=== PATIENT | female | born 1975 | race Caucasian/White ===

== ENCOUNTER 2023-07-01 16:00 | Inpatient (IN) | payer BC ==
[~2023-07-01] VITALS: Ht 165.1 cm; Wt 135.9 kg
[2023-07-01 16:28] LABS: BASO % 0.2 % (0.0-2.0); EOS % 0.1 % (0.0-4.0); GRAN # 12.8 K/mm3 (1.4-6.5); GRAN % 84.6 % (42.2-75.2); HEMATOCRIT 45.9 % (37.0-47.0); HEMOGLOBIN 15.1 g/dl (12.5-16.0); LYMPH # 1.3 K/mm3 (1.2-3.4); LYMPH % 8.8 % (20.0-51.0); MEAN CELL VOLUME 92 fl (80.0-100.0); MEAN CORPUSCULAR HEMOGLOBIN 30 pg (27-31); MEAN CORPUSCULAR HGB CONC 33 g/dl (33.0-37.0); MEAN PLATELET VOLUME 10.6 fl (7.4-10.4); MONO # 0.9 K/mm3 (0.1-0.6); MONO % 5.8 % (1.7-9.3); PLATELET COUNT 364 K/mm3 (130-400); RED BLOOD COUNT 5.01 M/mm3 (4.10-5.30); REDCELL DISTRIBUTION WIDTH-CV 12.7 % (11.5-14.5)
[2023-07-01 17:02] LABS: BILIRUBIN,TOTAL 4.9 mg/dL (0.2-1.2); CALCIUM 9.3 mg/dL (8.4-10.2); CREATININE, serum 0.85 mg/dL (0.57-1.11); POTASSIUM 3.9 mmol/L (3.5-4.5); TOTAL PROTEIN 7.9 gm/dL (6.2-8.1)
[2023-07-01 18:40] LABS: COLLECTION METHOD CLEAN CATCH
[2023-07-01] MEDS ORDERED: PRINIVIL20 MG PO (18:43)
[2023-07-01] MEDS ORDERED: TOPAMAX50 MG PO (18:43)
[2023-07-01] MEDS ORDERED: SEMGLEE (Y100 UNIT/2 SQ (18:46)
[2023-07-01 19:11] LABS: URINE COLOR Yellow (YELLOW); URINE GLUCOSE Negative (NEGATIVE); URINE KETONE 2+ (NEGATIVE); URINE PROTEIN(semi-quant) TRACE (NEGATIVE)
[2023-07-01 19:12] LABS: URINE APPEARANCE Clear (CLEAR/HAZY); URINE BACTERIA Occasional /hpf (NONE SEEN); URINE BLOOD 1+ (NEGATIVE); URINE NITRATE Negative (NEGATIVE); URINE UROBILINOGEN 0.2 E.U/dL (0.2-1.0)
[2023-07-01 19:13] LABS: MUCOUS Present (NOT PRESENT); SQUAMOUS EPITHELIAL 0-2 /hpf (0-10); URINE RBC 0-2 /hpf (0-2)
[2023-07-01] MEDS ORDERED: ADVIL200 MG PO (19:39)
[2023-07-01] MEDS ORDERED: ZEGERID 20 MG-11 CAP PO (19:39)
[2023-07-01 19:44] VITALS: BP 132/84; PULSE 77; TEMP 98.3
[2023-07-01 19:50] LABS: INR 1.1 (0.8-3.0); PROTHROMBIN TIME 11.9 SECONDS (9.7-12.8)
[2023-07-01 19:59] LABS: PHOSPHOROUS 3.1 mg/dL (2.3-4.7)
[2023-07-01 20:01] VITALS: BP_SYST 132
--- NOTE | 2023-07-01 21:11 | NUR ---
Patient arrived to medical unit from ER at approximately 1935. Alert and oriented, and able to make needs known. Reports level 5 pain to abdomen. Given PRN Morphine as requested. Started on IV fluids per orders. Spoke with Dr. Yañez who stated that ice chips were ok to have. Patient voices no further questions, needs, or concerns at this time. In bed with call light within reach.
[2023-07-01 23:28] VITALS: BP 117/73; PULSE 73; TEMP 98.2
[2023-07-02] VITALS (12 sets, daily range): BP systolic 117–148; BP diastolic 63–85; PULSE 76–93; TEMP 97.5–100
--- NOTE | 2023-07-02 05:30 | NUR ---
Patient continues on IV fluids per orders. Tolerating ice chips. Denies nausea. Has been having pain to abdomen, given PRN Morphine: see MAR for times. Did request PRN Toradol, stating that she received it in ER, and it seemed to help. Call placed to Dr. Yañez, and new order for one time dose of Toradol received and given per orders. Voices no further questions, needs, or concerns at this time. In bed with call light within reach.
[2023-07-02] MEDS ORDERED: [UNRECOGNIZED DRUG - OTHER] (07:13)
--- NOTE | 2023-07-02 07:20 | NUR ---
RECIEVED REPORT FROM CONSTANCE RUDOLPH.
--- NOTE | 2023-07-02 08:28 | NUR ---
PT ALERT AND ORIENTED. WOULD LIKE PAIN MEDS BEFORE WE ATTMEPT TO DRAW BLOOD. LAB WAS UNSUCCESSFUL AFTER TWO ATTEMPTS. VSS, SHIFT ASSESSMENT COMPLETE, MEIDCATED PER EMAR. NO C/O OF N/V , PAIN TO MIDLINE ABD RATED 5/10, PRN MORPHINE GIVEN. DENIES FURTHER NEED AT THIS TIME. CALL LIGHT WITHIN REACH.
--- NOTE | 2023-07-02 09:26 | NUR ---
Initial visit; Patient thanked Plush Cutter for looking in on her and offering prayer and God's blessings. Patient experiencing pain from Pancreatitis and would also appreciate Plush Cutter keeping her in her prayers. Plush Cutter will do so and will follow up while Layne is here at [facility].
[2023-07-02] MEDS ORDERED: ZOFRAN ODT4 MG PO (10:47)
[2023-07-02 10:53] LABS: BASO % 0.2 % (0.0-2.0); EOS % 0.1 % (0.0-4.0); GRAN # 11.2 K/mm3 (1.4-6.5); GRAN % 86.5 % (42.2-75.2); HEMATOCRIT 44.6 % (37.0-47.0); HEMOGLOBIN 14.7 g/dl (12.5-16.0); LYMPH # 0.9 K/mm3 (1.2-3.4); LYMPH % 6.9 % (20.0-51.0); MEAN CELL VOLUME 92 fl (80.0-100.0); MEAN CORPUSCULAR HEMOGLOBIN 30 pg (27-31); MEAN CORPUSCULAR HGB CONC 33 g/dl (33.0-37.0); MEAN PLATELET VOLUME 10.2 fl (7.4-10.4); MONO # 0.8 K/mm3 (0.1-0.6); MONO % 5.9 % (1.7-9.3); PLATELET COUNT 288 K/mm3 (130-400); RED BLOOD COUNT 4.84 M/mm3 (4.10-5.30); REDCELL DISTRIBUTION WIDTH-CV 13.2 % (11.5-14.5)
[2023-07-02 11:14] LABS: ALBUMIN 3.2 gm/dL (3.5-5.0); BILIRUBIN,TOTAL 5.8 mg/dL (0.2-1.2); CALCIUM 8.8 mg/dL (8.4-10.2); CREATININE, serum 0.82 mg/dL (0.57-1.11); POTASSIUM 3.8 mmol/L (3.5-4.5); TOTAL PROTEIN 6.4 gm/dL (6.2-8.1)
--- NOTE | 2023-07-02 15:38 | NUR ---
day worker met with patient to discuss discharge planning. Patient reports she lives in [place] with her , Linh, Adri# [phone]. PCP is Luda Sutton, pharmacy is [facility]. No issues affording medications. Insurance is [employer]. Patient did not have a DPOA-HC but wanted to establish one. SW assisted patient with the form, patient appointed her as primary and no secondary. SW and aide witnessed patient's signature, SW made several copies, placed a copy in the chart and provided the original and copies to the patient. No DME currently and independent with ADLS. Patient has her own form of transportation to get to and from appointments. Patient would like to return home at time of discharge. Discharge plan: Home
--- NOTE | 2023-07-02 16:27 | NUR ---
pt is resting in bed her was here to visit earlier and was very supportive. pt is still having abdomen pain generalized to the upper quadrant, rated at 5/10 pain. Also c/o some intermittent cramping. Morphine given per emar. Denies further need at this time. Call light within reach.
--- NOTE | 2023-07-02 20:45 | NUR ---
Patient resting in bed. Rates her pain at 3/10, pain meds given. Denies any needs at this time. Assessment complete. IV in left AC infusing with no complicaitons. Call light and personal items in reach. Bed in low position.
[2023-07-03] VITALS (11 sets, daily range): BP systolic 97–138; BP diastolic 52–72; PULSE 79–96; TEMP 98.1–99.8
--- NOTE | 2023-07-03 05:50 | NUR ---
Patient resting in bed. Rates her pain at 3/10 this morning, denies need for pain meds at this time. Denies any other needs. Patient had an uneventful evening. Call light and personal items in reach. Bed in low position.
[2023-07-03 08:09] LABS: HEMATOCRIT 43.8 % (37.0-47.0); HEMOGLOBIN 14.7 g/dl (12.5-16.0); MEAN CELL VOLUME 91 fl (80.0-100.0); MEAN CORPUSCULAR HEMOGLOBIN 31 pg (27-31); MEAN CORPUSCULAR HGB CONC 34 g/dl (33.0-37.0); MEAN PLATELET VOLUME 10.2 fl (7.4-10.4); PLATELET COUNT 241 K/mm3 (130-400); RED BLOOD COUNT 4.82 M/mm3 (4.10-5.30); REDCELL DISTRIBUTION WIDTH-CV 13.4 % (11.5-14.5)
[2023-07-03 08:22] LABS: ALBUMIN 2.7 gm/dL (3.5-5.0); BILIRUBIN,TOTAL 7.9 mg/dL (0.2-1.2); CALCIUM 8.5 mg/dL (8.4-10.2); CREATININE, serum 0.83 mg/dL (0.57-1.11); MAGNESIUM 1.8 mg/dL (1.6-2.6); POTASSIUM 3.8 mmol/L (3.5-4.5); TOTAL PROTEIN 6.1 gm/dL (6.2-8.1)
[2023-07-03 09:03] LABS: BAND 10 % (0-10); LYMPHOCYTE 10 % (20.0-51.0); NEUTROPHILS 73 % (42.0-75.2); PLATELET ESTIMATE NORMAL (NORMAL)
--- NOTE | 2023-07-03 09:08 | NUR ---
CRITICAL WBC COUNT OF 21.1. NOTIFIED PROVIDER. AWARE.
--- NOTE | 2023-07-03 11:00 | NUR ---
Follow-up visit; Patient thanked Gunstock Spray Unit Feeder for checking on her and said how much she appreciates [employer] Feeder caring. Cammie says she is better than yesterday but has now come up with an infection that is being checked out. Gun[employer] Spray Unit Feeder says she will continue to look in on Cammie and keep praying for discernment of health issues for Cammie and healing. Gun[employer] Spray Unit Feeder will follow-up.
--- NOTE | 2023-07-03 21:00 | NUR ---
Patient resting in bed. Rates her pain a 5/10 at this time, pain meds given. Denies any other pain or needs at this time. Assessment complete, encouraged ambulation. IV in left AC flushes easily with good blood return. Call light and personal items in reach. Bed in low position.
[2023-07-04] VITALS (12 sets, daily range): BP systolic 102–137; BP diastolic 67–80; PULSE 76–101; TEMP 98–101.5
--- NOTE | 2023-07-04 06:00 | NUR ---
Patient resting in bed. Rates her pain 4/10, pain meds given. Patient ambulated in the hallway over night. Denies any needs at this time. Call light and personal items in reach. Bed in low position.
--- NOTE | 2023-07-04 07:37 | NUR ---
LEATHER PRODUCTION WORKER NOTIFIED NURSE THAT PATIENT HAS A TEMPERATURE OF 101 AND AND OXYGEN SAT OF 86%. NURSING NOTIFIED PROVIDER. AWARE. MORPHINE 4MG IV WAS DECREASED TO 2MG IV, AND OXYCODONE 5MG EVERY 4 HOURS ORAL WAS WADDED. PATIENT IS SITTING UP IN BED ON 2L NC RESTING. PATIENT LOOKS MORE YELLOW TODAY PER ASSESSMENT.
--- NOTE | 2023-07-04 07:45 | NUR ---
PATIENT WAS PLACED ON OXYMASK 2L AFTER DESATTING TO 86% ON NC. AFTER RT CAME AND CHECKED SATURATION ON HER EAR SHE WAS 100% ON RA. PATIENT HAS VERY DARK NAIL ESTONIAN AND IT'S POSSIBLE THAT HER O2 WAS AN INACCURATE READING. BUT PATIENT DOES STATE THAT WHEN HER PAIN INCREASES SHE FINDS THAT HER BREATHING IS MORE LABORED. PATIENT IS SITTING UP IN HER CHAIR.
[2023-07-04 08:02] LABS: HEMATOCRIT 37.4 % (37.0-47.0); MEAN CELL VOLUME 91 fl (80.0-100.0); MEAN CORPUSCULAR HEMOGLOBIN 31 pg (27-31); MEAN CORPUSCULAR HGB CONC 34 g/dl (33.0-37.0); MEAN PLATELET VOLUME 10.6 fl (7.4-10.4); PLATELET COUNT 236 K/mm3 (130-400); RED BLOOD COUNT 4.13 M/mm3 (4.10-5.30); REDCELL DISTRIBUTION WIDTH-CV 13.5 % (11.5-14.5)
[2023-07-04 08:11] LABS: HEMOGLOBIN 12.6 g/dl (12.5-16.0)
[2023-07-04 08:18] LABS: ALBUMIN 2.4 gm/dL (3.5-5.0); BILIRUBIN,TOTAL 6.1 mg/dL (0.2-1.2); CALCIUM 8.9 mg/dL (8.4-10.2); CREATININE, serum 0.93 mg/dL (0.57-1.11); POTASSIUM 3.3 mmol/L (3.5-4.5); TOTAL PROTEIN 6.1 gm/dL (6.2-8.1)
[2023-07-04 09:20] LABS: BAND 5 % (0-10); EOSINOPHIL 1 % (0-4); LYMPHOCYTE 4 % (20.0-51.0)
[2023-07-04 09:21] LABS: NEUTROPHILS 85 % (42.0-75.2); PLATELET ESTIMATE NORMAL (NORMAL)
--- NOTE | 2023-07-04 09:59 | NUR ---
Follow-up visit; Patient experiencing some anxiety and fear and appears to be uncomfortable with her health issues. Metal Buildings Assembler offered prayer and comfort and will make sure Layne is seen over the weekend.
--- NOTE | 2023-07-04 14:51 | NUR ---
HUMBERTO spoke with Dr. Adri Yañez and was informed the plan would be for pt to return home eventually. She is currently on oxygen. Discharge Plan: Home
--- NOTE | 2023-07-04 19:50 | NUR ---
Patient standing at end of bed in discomfort from abd. Rates her pain about 4/10 at this time. Suppository given with no complications. Assessment complete. IV in right forearm flushes with no complications but some slight pain. Denies any other needs at this time. Call light and personal items in reach. Bed in low position.
[2023-07-05] VITALS (12 sets, daily range): BP systolic 106–138; BP diastolic 67–77; PULSE 96–107; TEMP 98–98.6
--- NOTE | 2023-07-05 05:29 | NUR ---
Patient resting in chair with eyes closed. No signs of pain at this time. Patient was able to have a few bowel movements overnight, no other changes. Call light and personal items in reach. Bed in low position.
--- NOTE | 2023-07-05 07:45 | NUR ---
PATINET ASLEEP IN RECLINER, PATIENT AROUSES EASILY TO NAME.PATIENT DENIES ANY NEEDS OR COMPLAINTS AT THIS TIME. CALL LIGHT WITHIN REACH.
[2023-07-05 09:14] LABS: HEMATOCRIT 37.4 % (37.0-47.0); HEMOGLOBIN 12.9 g/dl (12.5-16.0); MEAN CELL VOLUME 88 fl (80.0-100.0); MEAN CORPUSCULAR HEMOGLOBIN 30 pg (27-31); MEAN CORPUSCULAR HGB CONC 35 g/dl (33.0-37.0); MEAN PLATELET VOLUME 10.5 fl (7.4-10.4); PLATELET COUNT 300 K/mm3 (130-400); RED BLOOD COUNT 4.24 M/mm3 (4.10-5.30); REDCELL DISTRIBUTION WIDTH-CV 13.8 % (11.5-14.5)
[2023-07-05 09:18] LABS: ALBUMIN 2.4 gm/dL (3.5-5.0); BILIRUBIN,TOTAL 3.7 mg/dL (0.2-1.2); CALCIUM 9.2 mg/dL (8.4-10.2); CREATININE, serum 0.85 mg/dL (0.57-1.11); POTASSIUM 3.1 mmol/L (3.5-4.5); TOTAL PROTEIN 6.8 gm/dL (6.2-8.1)
--- NOTE | 2023-07-05 09:35 | NUR ---
MADE AWARE OF CRITICAL WBC
[2023-07-05 10:13] LABS: BAND 26 % (0-10); LYMPHOCYTE 6 % (20.0-51.0); NEUTROPHILS 60 % (42.0-75.2); PLATELET ESTIMATE NORMAL (NORMAL)
--- NOTE | 2023-07-05 12:22 | NUR ---
Data: Sales Recruitment Specialist visit at the request of the [facility] Sales Recruitment Specialist. Sales Recruitment Specialist and Patient discussed several topics including a new job and raising daughters. Assessment: Patient appeared to be in pain as evident by her guarded posture. Patient stated that she was thankful for the other Sales Recruitment Specialist. Plan of Care: Sales Recruitment Specialist provided supportive listening and prayer. Patient thanked Sales Recruitment Specialist for visit, and asked to extend thanks to the other Sales Recruitment Specialist.
--- NOTE | 2023-07-05 13:00 | NUR ---
PATIENT TOLERATED FULL LIQUID BLENDERIZED DIET FOR LUNCH.
--- NOTE | 2023-07-05 19:00 | NUR ---
PT SITTING IN THE CHAIR WATCHING TV. PT IS ON RA. PT IS NON TELE. PT STILL EATING DINNER AND STATES IT IS GOING WELL. PT IS AXOX3. PT HAS CALL LIGHT AND INSTRUCTED TO CALL [facility] ALL NEEDS.
[2023-07-06] VITALS (7 sets, daily range): BP systolic 106–145; BP diastolic 71–89; PULSE 100–105; TEMP 98.3–99.7
--- NOTE | 2023-07-06 07:00 | NUR ---
PATIENT ASLEEP, SITTING UP IN RECLINER PATIENT DENIES ANY NEEDS OR COMPLAITNS AT THIS TIME. CALL LIGHT WITHIN REACH.
[2023-07-06 07:56] LABS: HEMOGLOBIN 11.1 g/dl (12.5-16.0); MEAN CELL VOLUME 88 fl (80.0-100.0); MEAN CORPUSCULAR HEMOGLOBIN 31 pg (27-31); MEAN CORPUSCULAR HGB CONC 35 g/dl (33.0-37.0); MEAN PLATELET VOLUME 10.2 fl (7.4-10.4); PLATELET COUNT 308 K/mm3 (130-400); RED BLOOD COUNT 3.63 M/mm3 (4.10-5.30); REDCELL DISTRIBUTION WIDTH-CV 13.8 % (11.5-14.5)
[2023-07-06 08:18] LABS: ALBUMIN 2.2 gm/dL (3.5-5.0); BILIRUBIN,TOTAL 2.3 mg/dL (0.2-1.2); CALCIUM 8.7 mg/dL (8.4-10.2); CREATININE, serum 0.72 mg/dL (0.57-1.11); POTASSIUM 3.3 mmol/L (3.5-4.5)
--- NOTE | 2023-07-06 08:35 | NUR ---
INFORMED OF PATIENT CRIIICAL WBC
[2023-07-06 09:43] LABS: BAND 9 % (0-10); LYMPHOCYTE 9 % (20.0-51.0); NEUTROPHILS 79 % (42.0-75.2); PLATELET ESTIMATE NORMAL (NORMAL)
[2023-07-06] MEDS ORDERED: AMOXICILLIN 8751 TAB PO (11:08)
[2023-07-06] MEDS ORDERED: FLAGYL500 MG PO (11:09)
[2023-07-06] MEDS ORDERED: NORCO 325 MG-7.1 TAB PO (11:10)
--- NOTE | 2023-07-06 11:30 | NUR ---
TERESE HAS TOLERATED BLAND/GERD DIET FOR 3 MEALS.
--- NOTE | 2023-07-06 12:00 | NUR ---
PATIENT AWARE SHE NEEDS TO GET A PCP FOR A 1 WEEK FOLLOW UP APT.
--- NOTE | 2023-07-06 12:10 | NUR ---
PAIENT IV REMOVED. PATIENT TAKEN VIA WHEELCHIAR BY PCT, WHERE SHE LEFT IN STABLE CONDITION WITH HER .
== END 2023-07-06 13:18 | disposition home or self-care (01) | DRG 439 ==
LOC: COL.ER 16:00 → MEDICAL 18:11
PROVIDERS: Nurse Practitioner Family; Physician Assistant; ADMIT Internal Medicine
DX: K85.90 Acute pancreatitis without necrosis or infection, unspecified (principal); Z68.42 Body mass index [BMI] 45.0-49.9, adult; E80.6 Other disorders of bilirubin metabolism; I10 Essential (primary) hypertension; E66.01 Morbid (severe) obesity due to excess calories
CPT/HCPCS: A9284; C9113; J1885; J2270; J2405; J2543; J7030; J7120; Q9967